=== PATIENT | female | born 2000 | race Caucasian/White ===

== ENCOUNTER 2021-12-02 00:47 | Emergency (ER) | payer OTHER, BC | END 2021-12-02 01:19 | disposition home or self-care (01) | LOC: CSHERS 00:47 | DX: S20.112A Abrasion of breast, left breast, initial encounter (principal); E03.9 Hypothyroidism, unspecified; F17.210 Nicotine dependence, cigarettes, uncomplicated; F17.290 Nicotine dependence, other tobacco product, uncomplicated; V49.40XA Driver injured in collision with unspecified motor vehicles in traffic accident, initial encounter; Z79.899 Other long term (current) drug therapy | CPT/HCPCS: 99284 ==